=== PATIENT | male | born 1990 | race Caucasian/White ===

== ENCOUNTER 2020-05-25 07:25 | Emergency (ER) | payer MEDICAID ==
[~2020-05-25] VITALS: Ht 175.3 cm; Wt 90.0 kg
[2020-05-25] MEDS ORDERED: ONDANSETRON HCL 4MG/2ML INJ IV STA (08:33)
[2020-05-25] MEDS ORDERED: MORPHINE SULFATE 4 MG/ML CPJ (NOT FOR IM USE) IV STA (08:33)
[2020-05-25 09:31] LABS: BASOPHILS % 0.7 % (0.0-2.0); HEMATOCRIT. 47.6 % (42.0-52.0); HEMOGLOBIN. 16.4 g/dL (14.0-18.0); LYMPHOCYTES % 15.8 % (20.0-50.0); MEAN CORPUSCULAR HEMOGLOBIN 27.3 pg (28.0-32.0); MEAN CORPUSCULAR VOLUME 79.1 fL (80.0-94.0); MEAN PLATELET VOLUME 8.7 fl (7.4-10.4); MONOCYTES % 7.3 % (2.0-8.0); NEUTROPHILS % 76.2 % (40.0-76.0); PLATELET 383 x1000/uL (130-400); RED BLOOD CELL COUNT 6.02 mill/uL (4.7-6.1); RED CELL DISTRIBUTION WIDTH 12.8 % (11.6-14.6)
[2020-05-25 10:28] LABS: CHLORIDE 103 mEq/L (98-107)
[2020-05-25] MEDS ORDERED: ACETAMINOPHEN 325MG TABLET PO ONE (10:30)
[2020-05-25 10:31] LABS: INR 1.1; PROTHROMBIN TIME 11.9 sec (9.6-11.0)
[2020-05-25] MEDS ORDERED: ONDA4TAB5 PO (11:54)
[2020-05-25] MEDS ORDERED: TOPUD PO (11:54)
[2020-05-25 12:14] VITALS: BP 130/87
== END 2020-05-25 12:38 | disposition home or self-care (01) ==
LOC: ER 07:59 → EDBEDREQ 10:50 → ER 12:38 → CANBEDREQ 16:34
DX: R10.13 Epigastric pain (principal); F12.10 Cannabis abuse, uncomplicated; F17.210 Nicotine dependence, cigarettes, uncomplicated; Z88.8 Allergy status to other drugs, medicaments and biological substances; Z98.890 Other specified postprocedural states
CPT/HCPCS: 36415; 76705; 80053; 83690; 84484; 85025; 85610; 93005; 96374; 96375; 99285; J2270; J2405